=== PATIENT | female | born 1980 | race Caucasian/White ===

== ENCOUNTER 2017-04-28 12:43 | Observation (INO) | payer BC, OTHER ==
[~2017-04-28] VITALS: Ht 154.9 cm; Wt 103.8 kg
[~2017-04-28 12:43] MED LIST: KETOROLAC TROMETHAMINE 60 MG/2 ML (IM) VIAL IM ONE; LACTATED RINGER'S 1000 ML INJ 1,000 ML IV ONE; NEOSTIGMINE 3 MG/3 ML SYR IV ONE; ONDANSETRON HCL 4 MG/2 ML VIAL IV PUSH ONE; PROPOFOL 200 MG/20 ML AMP IV ONE; Z.0.NO CURRENT MEDS
[2017-04-28 12:44] VITALS: BP 144/82; PULSE 79; RESP 15; TEMP 98; O2SAT 99
--- NOTE | 2017-04-28 14:29 | PD ---
HPI Chief Complaint: GI Complaint Time Seen by Provider: 14:18 Travel History International Travel<30 days: No Contact w/Intl Traveler<30days: No Traveled to known affect area: No History of Present Illness HPI 36yo F with no PMH presents to the ED with c/o epigastric abdominal pain. States it started yesterday and went away and then came back at 2am this morning. Pain is epigastric and radiates to the right abdomen and back. + Nausea. Denies any fever, chest pain, sob, vomiting, dysuria, hematuria, vaginal discharge. States she is on her menstrual period at this time. PSH include . Never had endoscopy. Denies history of gallstones. PFSH Past Medical History Cardiovascular Problems: Yes (HTN ) Social History Tobacco Use: No Allergies-Medications (Allergen,Severity, Reaction): Coded Allergies: No Known Allergies (Unverified , 04/28/17) Reported Meds & Prescriptions Reported Meds & Active Scripts Active Macrobid (Nitrofurantoin Monohydrate Macrocrystals) 100 Mg Capsule 100 Mg PO BID 7 Days Review of Systems Except as stated in HPI: all other systems reviewed are Neg Physical Exam Narrative GENERAL: 36yo F in mild distress. SKIN: Focused skin assessment warm/dry. HEAD: Atraumatic. Normocephalic. EYES: Pupils equal and round. No scleral icterus. No injection or drainage. CARDIOVASCULAR: Regular rate and rhythm. No murmur appreciated. RESPIRATORY: No accessory muscle use. Clear to auscultation. Breath sounds equal bilaterally. GASTROINTESTINAL: Abdomen soft, +TTP epigastric region and RUQ. No rebound tenderness or guarding. BACK: No midline ttp. No CVA tenderness. MUSCULOSKELETAL: No obvious deformities. No clubbing. No cyanosis. No edema. NEUROLOGICAL: Awake and alert. No obvious cranial nerve deficits. Motor grossly within normal limits. Normal speech. PSYCHIATRIC: Appropriate mood and affect; insight and judgment normal. Data Data Last Documented VS Vital Signs Date Time Temp Pulse Resp B/P Pulse Ox O2 Delivery O2 Flow Rate FiO2 04/28/17 18:35 16 04/28/17 17:35 78 125/82 97 Room Air 04/28/17 12:44 98.0 Orders Complete Blood Count With Diff (04/28/17 14:24) Urinalysis - C+S If Indicated (04/28/17 14:24) Iv Access Insert/Monitor (04/28/17 14:24) Ecg Monitoring (04/28/17 14:24) Oximetry (04/28/17 14:24) Morphine Inj (Morphine Inj) (04/28/17 14:30) Ondansetron Inj (Zofran Inj) (04/28/17 14:30) Sodium Chloride 0.9% Flush (Ns Flush) (04/28/17 14:30) Ed Urine Pregnancytest Poc (04/28/17 14:24) Hepatic Functional Panel (04/28/17 14:25) Pantoprazole Inj (Protonix Inj) (04/28/17 14:30) Basic Metabolic Panel (Bmp) (04/28/17 14:32) Lipase (04/28/17 14:32) Urine Culture (04/28/17 14:32) Ct Abd/Pel W Iv Contrast(Rout) (04/28/17 ) Piperacil-Tazo 4.5 Gm Premix (Zosyn 4.5 (04/28/17 15:45) NPO (04/28/17 15:36) Sodium Chlor 0.9% 1000 Ml Inj (Ns 1000 M (04/28/17 15:45) Iohexol 350 Inj (Omnipaque 350 Inj) (04/28/17 16:01) Morphine Inj (Morphine Inj) (04/28/17 17:30) Us Abdomen Gallbladder (04/28/17 ) Mri Mrcp W/O Contrast (04/28/17 ) Labs Laboratory Tests Test 04/28/17 14:32 White Blood Count 8.4 TH/MM3 Red Blood Count 4.47 MIL/MM3 Hemoglobin 14.5 GM/DL Hematocrit 40.9 % Mean Corpuscular Volume 91.4 FL Mean Corpuscular Hemoglobin 32.3 PG Mean Corpuscular Hemoglobin 35.4 % Concent Red Cell Distribution Width 12.2 % Platelet Count 304 TH/MM3 Mean Platelet Volume 7.9 FL Neutrophils (%) (Auto) 80.0 % Lymphocytes (%) (Auto) 12.7 % Monocytes (%) (Auto) 6.5 % Eosinophils (%) (Auto) 0.3 % Basophils (%) (Auto) 0.5 % Neutrophils # (Auto) 6.7 TH/MM3 Lymphocytes # (Auto) 1.1 TH/MM3 Monocytes # (Auto) 0.5 TH/MM3 Eosinophils # (Auto) 0.0 TH/MM3 Basophils # (Auto) 0.0 TH/MM3 CBC Comment DIFF FINAL Differential Comment Urine Color DARK-YELLOW Urine Turbidity HAZY Urine pH 6.5 Urine Specific [place] 1.025 Urine Protein 30 mg/dL Urine Glucose (UA) NEG mg/dL Urine Ketones NEG mg/dL Urine Occult Blood LARGE Urine Nitrite NEG Urine Bilirubin MOD Urine Urobilinogen 4.0 MG/DL Urine Leukocyte Esterase MOD Urine RBC 8 /hpf Urine WBC 16 /hpf Urine Squamous Epithelial 13 /hpf Cells Urine Mucus FEW /lpf Microscopic Urinalysis Comment CULTURE INDICATED Sodium Level 141 MEQ/L Potassium Level 3.8 MEQ/L Chloride Level 107 MEQ/L Carbon Dioxide Level 25.2 MEQ/L Anion Gap 9 MEQ/L Blood Urea Nitrogen 11 MG/DL Creatinine 0.78 MG/DL Estimat Glomerular Filtration 83 ML/MIN Rate Random Glucose 105 MG/DL Calcium Level 8.6 MG/DL Total Bilirubin 1.9 MG/DL Direct Bilirubin 1.0 MG/DL Indirect Bilirubin 0.9 MG/DL Aspartate Amino Transf 506 U/L (AST/SGOT) Alanine Aminotransferase 258 U/L (ALT/SGPT) Alkaline Phosphatase 142 U/L Total Protein 7.5 GM/DL Albumin 3.3 GM/DL Lipase 294 U/L [facility] Medical Decision Making Medical Screen Exam Complete: Yes Emergency Medical Condition: Yes Differential Diagnosis Biliary colic vs. acute cholecystitis vs. pancreatitis vs. choledocholithiasis vs. GERD vs. PUD vs. gastritis Narrative Course 36yo F with epigastric and RUQ pain that was intermittent since yesterday. States it was severe today and woke her up at 2am. Labs reviewed, no leukocytosis. LFTs and bilirubin are elevated. Normal lipase. Will cover with zosyn IV. UA showed moderate leukocytosis. Culture indicated. Pt reevaluated at bedside after morphine and pain had improved but coming back, will give another dose. CTa/p showed no dilation of biliary tree. No calcified gallstones. Pancreas normal. Soft tissue mass in anterior pelvis. Pt already knows about this and has been worked up for it and is following up with PMD regarding this. Discussed with Dr. Hubbard from GI and he recommends an MRCP in the ED and disposition is dependant on that. MRCP ordered. Sign out to next team Dr. Walter to follow up MRCP. Diagnosis Primary Impression: UTI (urinary tract infection) Qualified Code: N39.0 - Urinary tract infection with hematuria, site unspecified Patient Instructions: General Instructions Departure Forms: Tests/Procedures Additional Instructions: Please follow up with your PMD regarding your pelvic mass. Med/Other Pt SpecificInfo: Prescription(s) given Scripts Nitrofurantoin Monohydrate Macrocrystals (Macrobid)100 Mg [id number] Mg PO BID 7 Days Ref 0 Prov:Rupali Vazquez DO 04/28/17 Rupali Vazquez DO Apr 28, 2017 14:29 Prov:Rupali Vazquez DO 04/28/17 Rupali Vazquez DO Apr 28, 2017 14:29
[2017-04-28 14:30] VITALS: O2SAT 98
[2017-04-28] MEDS ORDERED: SODIUM CHLORIDE 0.9% FLUSH 10 ML FLUSH IV FLUSH PRN ×3 (14:30→23:45)
[2017-04-28] MEDS ORDERED: PANTOPRAZOLE SODIUM 40 MG VIAL IV PUSH ONE (14:30)
[2017-04-28] MEDS ORDERED: MORPHINE SULFATE 4 MG/ML INJ IV PUSH ONE ×2 (14:30→17:30)
[2017-04-28] MEDS ORDERED: ONDANSETRON HCL 4 MG/2 ML VIAL IVP ONE (14:30)
[2017-04-28 14:48] LABS: AUTOMATED NEUTROPHIL # 6.7 TH/MM3 (1.8-7.7); BASOPHIL % 0.5 % (0.0-2.0); EOSINOPHIL % 0.3 % (0.0-4.0); HEMATOCRIT 40.9 % (35.0-46.0); HEMO FLAGS DIFF FINAL; LYMPH % 12.7 % (9.0-44.0); LYMPHOCYTE # 1.1 TH/MM3 (1.0-4.8); MEAN CELL VOLUME 91.4 FL (80.0-100.0); MEAN CORPUSCULAR HEMOGLOBIN 32.3 PG (27.0-34.0); MEAN CORPUSCULAR HGB CONC 35.4 % (32.0-36.0); MONO % 6.5 % (0.0-8.0); PLATELET COUNT 304 TH/MM3 (150-450); RED BLOOD COUNT 4.47 MIL/MM3 (4.00-5.30); RED CELL DISTRIBUTION WIDTH 12.2 % (11.6-17.2); WHITE BLOOD COUNT 8.4 TH/MM3 (4.0-11.0)
[2017-04-28 14:53] VITALS: BP 126/67; PULSE 73; RESP 17; O2SAT 97
[2017-04-28 14:57] LABS: BLOOD, URINE LARGE (NEG); COMMENT (UR) CULTURE INDICATED; CULTURE IF INDICATED CULTURE INDICATED; GLUCOSE,URINE NEG (NEG); KETONE, URINE NEG (NEG); MUCUS URINE FEW /lpf (OCC); NITRITE,URINE NEG (NEG); PH, URINE 6.5 (5.0-8.5); SQUAMOUS EPITHELIAL CELL URINE 13 /hpf (0-5); URINE COLOR DARK-YELLOW (YELLW/STRAW)
[2017-04-28 15:06] LABS: BICARBONATE 25.2 MEQ/L (21.0-32.0); POTASSIUM 3.8 MEQ/L (3.5-5.1)
[2017-04-28 15:08] LABS: INDIRECT BILIRUBIN 0.9 MG/DL (0.0-0.8); TOTAL BILIRUBIN ADULT 1.9 MG/DL (0.2-1.0)
[2017-04-28] MEDS ORDERED: SODIUM CHLOR 0.9% 1000 ML INJ 1,000 ML IV ONE (15:45)
[2017-04-28] MEDS ORDERED: PIPERACIL-TAZO 4.5 GM PREMIX 100 ML IV ONE (15:45)
[2017-04-28] MEDS ORDERED: IOHEXOL 350 MG/ML 10 ML VIAL (for RAD DIAG) IV ONE (16:01)
--- NOTE | 2017-04-28 16:22 | RADRPT ---
EXAM DATE/TIME: 04/28/2017 15:53 [facility] COMPARISON: No previous studies available for comparison. INDICATIONS : Epigastric pain starting today,nausea. IV CONTRAST: 86 cc Omnipaque 350 (iohexol) IV ORAL CONTRAST: No oral contrast ingested. RADIATION DOSE: 16.39 CTDIvol (mGy) MEDICAL HISTORY : Hypertension. SURGICAL HISTORY : section. ENCOUNTER: Initial ACUITY: 1 day PAIN SCALE: 8/10 LOCATION: Abdomen TECHNIQUE: Volumetric scanning of the abdomen and pelvis was performed. Using automated exposure control and ad justment of the mA and/or kV according to patient size, radiation dose was kept as low as reasonably achievable to obtain optimal diagnostic quality images. DICOM format image data is available electro nically for review and comparison. FINDINGS: LOWER LUNGS: Fibrotic scarring is noted within the right middle lobe and lingula of the left upper lobe. LIVER: Homogeneous density without lesion. There is no dilation of the biliary tree. No calcified gallston es. SPLEEN: Normal size without lesion. PANCREAS: Within normal limits. KIDNEYS: Normal in size and shape. There is no mass, stone or hydronephrosis. ADRENAL GLANDS: Within normal limits. VASCULAR: There is no aortic aneurysm. BOWEL/MESENTERY: The stomach, small bowel, and colon demonstrate no acute abnormality. There is no free intraperitone al air or fluid. ABDOMINAL WALL: There is a spiculated soft tissue mass within the subcutaneous fat of the anterior pelvis which is in separable from the left rectus musculature and measures 5.8 x 7.0 x 4.8 cm. There is indeterminate an d soft tissue neoplasm remains in the differential. Percutaneous biopsy of this lesion could be perfo rmed if requested. RETROPERITONEUM: There is no lymphadenopathy. BLADDER: No wall thickening or mass. REPRODUCTIVE: There is a left fundal mass within the uterus measuring 3 cm consistent with probable fibroid. INGUINAL: There is no lymphadenopathy or hernia. MUSCULOSKELETAL: Within normal limits for patient age. CONCLUSION: 1. Spiculated soft tissue mass within the subcutaneous fat of the anterior pelvis which is inseparabl e from the left rectus musculature and measures 5.8 x 7.0 x 4.8 cm. There is indeterminate and soft t issue neoplasm remains in the differential. Percutaneous biopsy of this lesion could be performed if requested. 2. 3 cm left uterine fundal fibroid. Cornelio Vazquez MD on April 28, 2017 at 16:13 Board Certified Radiologist. This report was verified electronically.
[2017-04-28] MEDS ORDERED: MACR100C2 PO (17:26)
[2017-04-28 17:35] VITALS: BP 125/82; PULSE 78; RESP 17; O2SAT 97
--- NOTE | 2017-04-28 19:11 | RADRPT ---
EXAM DATE/TIME: 04/28/2017 18:43 [facility] COMPARISON: CT ABDOMEN & PELVIS W CONTRAST, April 28, 2017, 15:53. INDICATIONS : Right upper quadrant pain. MEDICAL HISTORY : Hypertension. SURGICAL HISTORY : section. ENCOUNTER: Initial ACUITY: 2 days PAIN SCORE: 7/10 LOCATION: Right upper quadrant MEASUREMENTS: LIVER: 16.9 cm length COMMON DUCT: 4 mm RIGHT KIDNEY: 10.4 x 6.3 x 5.1 cm FINDINGS: LIVER: Normal echotexture without focal lesion or ductal dilatation. Hepatopedal flow. COMMON DUCT: No intraluminal mass or stone visualized. GALLBLADDER: Contains multiple stones, demonstrates mild wall thickening without pericholecystic fluid. PANCREAS: The visualized portions are within normal limits. RIGHT KIDNEY: No evidence of hydronephrosis, stone, or mass. CONCLUSION: 1. Cholelithiasis with gallbladder wall thickening. Ehsan Abdi MD on April 28, 2017 at 19:08 Board Certified Radiologist. This report was verified electronically.
[2017-04-28 20:00] VITALS: BP 150/82; PULSE 79; RESP 16; O2SAT 96
--- NOTE | 2017-04-28 20:03 | RADRPT ---
EXAM DATE/TIME: 04/28/2017 19:13 [facility] COMPARISON: US ABDOMEN - GALLBLADDER, April 28, 2017, 18:43. CT ABDOMEN & PELVIS W CONTRAST, April 28, 2017, 15:53 . INDICATIONS : Pain. Epigastric pain and nausea. MEDICAL HISTORY : Hypertension. SURGICAL HISTORY : section. ENCOUNTER: Subsequent ACUITY: 2 day PAIN SCORE: 8/10 LOCATION: Abdomen. TECHNIQUE: Multiplanar, multisequence magnetic resonance imaging of the abdomen was performed. High-resolution 3D dataset was utilized to reconstruct maximum-intensity projection (MIP) images. FINDINGS: INTRAHEPATIC BILE DUCTS: Within normal limits. No significant anatomical variant is present. EXTRAHEPATIC BILE DUCTS: The common bile duct measures 2-3 mm. No stone or filling defect is identified. GALLBLADDER: No stones, wall thickening, or pericholecystic fluid. LIVER: Normal size and signal intensity. No concerning liver lesion is identified on this non-contrast exam. PANCREAS: The main pancreatic duct is normal in size. There is no significant anatomical variant. Signal inte nsity is within normal limits. No mass is visualized on this non-contrast exam. OTHER: The remaining visualized structures demonstrate no acute abnormality on this non-contrast exam. CONCLUSION: 1. Cholelithiasis and gallbladder wall thickening. 2. Normal common bile duct. No edge or extrahepatic biliary ductal dilatation. Ehsan Abdi MD on April 28, 2017 at 19:59 Board Certified Radiologist. This report was verified electronically.
--- NOTE | 2017-04-28 20:22 | PD ---
Data Data Last Documented VS Vital Signs Date Time Temp Pulse Resp B/P Pulse Ox O2 Delivery O2 Flow Rate FiO2 04/28/17 20:00 79 16 150/82 96 Room Air 04/28/17 12:44 98.0 Orders Complete Blood Count With Diff (04/28/17 14:24) Urinalysis - C+S If Indicated (04/28/17 14:24) Iv Access Insert/Monitor (04/28/17 14:24) Ecg Monitoring (04/28/17 14:24) Oximetry (04/28/17 14:24) Morphine Inj (Morphine Inj) (04/28/17 14:30) Ondansetron Inj (Zofran Inj) (04/28/17 14:30) Sodium Chloride 0.9% Flush (Ns Flush) (04/28/17 14:30) Ed Urine Pregnancytest Poc (04/28/17 14:24) Hepatic Functional Panel (04/28/17 14:25) Pantoprazole Inj (Protonix Inj) (04/28/17 14:30) Basic Metabolic Panel (Bmp) (04/28/17 14:32) Lipase (04/28/17 14:32) Urine Culture (04/28/17 14:32) Ct Abd/Pel W Iv Contrast(Rout) (04/28/17 ) Piperacil-Tazo 4.5 Gm Premix (Zosyn 4.5 (04/28/17 15:45) NPO (04/28/17 15:36) Sodium Chlor 0.9% 1000 Ml Inj (Ns 1000 M (04/28/17 15:45) Iohexol 350 Inj (Omnipaque 350 Inj) (04/28/17 16:01) Morphine Inj (Morphine Inj) (04/28/17 17:30) Us Abdomen Gallbladder (04/28/17 ) Mri Mrcp W/O Contrast (04/28/17 ) Admit Order (Ed Use Only) (04/28/17 ) Consult Gastroenterology (04/28/17 ) Consult General Surgery (04/28/17 ) Labs Laboratory Tests Test 04/28/17 14:32 White Blood Count 8.4 TH/MM3 Red Blood Count 4.47 MIL/MM3 Hemoglobin 14.5 GM/DL Hematocrit 40.9 % Mean Corpuscular Volume 91.4 FL Mean Corpuscular Hemoglobin 32.3 PG Mean Corpuscular Hemoglobin 35.4 % Concent Red Cell Distribution Width 12.2 % Platelet Count 304 TH/MM3 Mean Platelet Volume 7.9 FL Neutrophils (%) (Auto) 80.0 % Lymphocytes (%) (Auto) 12.7 % Monocytes (%) (Auto) 6.5 % Eosinophils (%) (Auto) 0.3 % Basophils (%) (Auto) 0.5 % Neutrophils # (Auto) 6.7 TH/MM3 Lymphocytes # (Auto) 1.1 TH/MM3 Monocytes # (Auto) 0.5 TH/MM3 Eosinophils # (Auto) 0.0 TH/MM3 Basophils # (Auto) 0.0 TH/MM3 CBC Comment DIFF FINAL Differential Comment Urine Color DARK-YELLOW Urine Turbidity HAZY Urine pH 6.5 Urine Specific [place] 1.025 Urine Protein 30 mg/dL Urine Glucose (UA) NEG mg/dL Urine Ketones NEG mg/dL Urine Occult Blood LARGE Urine Nitrite NEG Urine Bilirubin MOD Urine Urobilinogen 4.0 MG/DL Urine Leukocyte Esterase MOD Urine RBC 8 /hpf Urine WBC 16 /hpf Urine Squamous Epithelial 13 /hpf Cells Urine Mucus FEW /lpf Microscopic Urinalysis Comment CULTURE INDICATED Sodium Level 141 MEQ/L Potassium Level 3.8 MEQ/L Chloride Level 107 MEQ/L Carbon Dioxide Level 25.2 MEQ/L Anion Gap 9 MEQ/L Blood Urea Nitrogen 11 MG/DL Creatinine 0.78 MG/DL Estimat Glomerular Filtration 83 ML/MIN Rate Random Glucose 105 MG/DL Calcium Level 8.6 MG/DL Total Bilirubin 1.9 MG/DL Direct Bilirubin 1.0 MG/DL Indirect Bilirubin 0.9 MG/DL Aspartate Amino Transf 506 U/L (AST/SGOT) Alanine Aminotransferase 258 U/L (ALT/SGPT) Alkaline Phosphatase 142 U/L Total Protein 7.5 GM/DL Albumin 3.3 GM/DL Lipase 294 U/L [facility] Supervised Visit with HENRRY: Yes Narrative Course Patient care assumed from Dr. Rupali Vazquez at 1999. This is a 36-year-old female presents with postprandial right upper quadrant and epigastric pain radiating to her back. Patient states hurts or when she takes deep breath. CAT scan did show a contracted gallbladder. Patient on my exam does have a weakly positive [place] sign. She is much more comfortable after morphine shot administered by Dr. Garvey. LFTs alkaline phosphatase and bilirubin are all mildly elevated. Patient was discussed with Dr. Hubbard by Dr. Garvey who recommended an MRCP. On my assessment patient fairly classic for gallbladder disease and I have ordered an ultrasound. Ultrasound and MRCP results reviewed: Last 24 hours Impressions Gall Bladder Ultrasound 04/28/17 Signed Impressions: Service Date/Time: Friday, April 28, 2017 18:43 - CONCLUSION: 1. Cholelithiasis with gallbladder wall thickening. Ehsan Abdi MD Abdomen/Pelvis CT 04/28/17 Signed Impressions: Service Date/Time: Friday, April 28, 2017 15:53 - CONCLUSION: 1. Spiculated soft tissue mass within the subcutaneous fat of the anterior pelvis which is inseparable from the left rectus musculature and measures 5.8 x 7.0 x 4.8 cm. There is indeterminate and soft tissue neoplasm remains in the differential. Percutaneous biopsy of this lesion could be performed if requested. 2. 3 cm left uterine fundal fibroid. Cornelio Vazquez MD The ultrasound and CT results as well as labs were discussed with Dr. Childers who requested the patient be admitted to medicine for workup of possible choledocholithiasis. He requests pain medicine be given and antibiotics. Zosyn was administered by Dr. Vazquez. Discussed with Dr. Dos Santos who will admit. It is 2129, and Dr. Childers has arrived to examine the patient and he is convinced the patient has acute cholecystitis. I surely do not disagree. He would like the patient to be on his surgical service at this time and he is planning to take to the operating room tonight. This change in plan was discussed with Dr. Gomez, she has not had any direct patient contact the did place some holding orders for this patient with Dr. Childers will be the primary service at this time no medicine consult is been placed. Diagnosis Primary Impression: Cholecystitis Additional Impressions: Transaminitis UTI (urinary tract infection) Qualified Code: N39.0 - Urinary tract infection with hematuria, site unspecified Admitting Information Admitting Physician Requests: Admit Patient Instructions: General Instructions Departure Forms: Tests/Procedures Additional Instruction: Please follow up with your PMD regarding your pelvic mass. Scripts Nitrofurantoin Monohydrate Macrocrystals (Macrobid)100 Mg [id number] Mg PO BID 7 Days Ref 0 Prov:Rupali Vazquez DO 04/28/17 Condition: Stable Cornelio Walter MD Apr 28, 2017 20:22
[2017-04-28] MEDS ORDERED: fentaNYL CITRATE 250 MCG/5 ML AMP ONE (21:28)
[2017-04-28] MEDS ORDERED: BUPIVACAINE/EPINEPHRINE 0.25% 50 ML VIAL ONE (21:34)
[2017-04-28] MEDS ORDERED: SODIUM CHLOR 0.9% 1000 ML INJ 1,000 ML IV SCH (21:38)
[2017-04-28 21:45] VITALS: BP 149/81; PULSE 75; RESP 16; TEMP 98.3; O2SAT 97
[2017-04-28] MEDS ORDERED: NALOXONE HCL 0.4 MG/ML AMP IV PRN ×2 (21:45→23:45)
[2017-04-28] MEDS ORDERED: HYDROmorphone HCL PF 1 MG/ML VIAL IV PUSH PRN (21:45)
[2017-04-28] MEDS ORDERED: ACETAMINOPHEN 1000 MG/100 ML VIAL IV ONE (21:57)
--- NOTE | 2017-04-28 21:59 | HHI.HP ---
HPI Service General surgery Primary Care Physician Yarelis Engel MD Admission Diagnosis Cholecystitis Chief Complaint: Abdominal pain History of Present Illness The patient is an obese 36-year-old female who developed epigastric and right upper quadrant pain radiating to the back at 2 AM this morning which woke her up from sleep. The pain improved within began again around 9 AM after she had some breakfast. She had associated nausea but no fever or chills. The patient mentions that she has a painful mass in the lower abdomen which causes her constant pain but does worsen with menses. This began about 8 years ago. She has had some evaluation as an outpatient but no biopsy. In addition, the patient's mother was diagnosed with colon cancer at age of 41. The patient is never had a colonoscopy. Past surgical history includes 9 years ago. Review of Systems Constitutional: DENIES: Fever, Chills Eyes: DENIES: Eye inflammation, Eye pain Respiratory: DENIES: Cough, Shortness of breath Cardiovascular: DENIES: Chest pain, Syncope Gastrointestinal: COMPLAINS OF: Abdominal pain, Nausea Musculoskeletal: DENIES: Muscle aches, Stiffness Integumentary: DENIES: Pruritus, Rash Neurologic: DENIES: Paresthesias, Seizures Past Family Social History Past Medical History Reflux Past Surgical History Reported Medications Reported Meds & Active Scripts Active Macrobid (Nitrofurantoin Monohydrate Macrocrystals) 100 Mg Capsule 100 Mg PO BID 7 Days Allergies: Coded Allergies: No Known Allergies (Unverified , 04/28/17) Active Ordered Medications Current Medications Medications (Trade) Dose Ordered Sig/Miky Route Start Time Stop Time Status Last Admin (NS 1000 ml Inj) 1,000 ml @ 100 mls/hr Q10H IV 04/28/17 21:38 (NS Flush) 2 ml UNSCH PRN IV FLUSH 04/28/17 21:45 (NS Flush) 2 ml BID IV FLUSH 04/29/17 09:00 (Narcan Inj) 0.4 mg UNSCH PRN IV 04/28/17 21:45 (Dilaudid Pf Inj) 0.2 mg Q4H PRN IV PUSH 04/28/17 21:45 Family History Her mother was diagnosed with colon cancer at age 41. Social History No tobacco use. Physical Exam Vital Signs Vital Signs Date Time Temp Pulse Resp B/P Pulse Ox O2 Delivery O2 Flow Rate FiO2 04/28/17 21:45 98.3 75 16 149/81 97 Room Air 04/28/17 20:00 79 16 150/82 96 Room Air 04/28/17 18:35 16 04/28/17 17:35 78 17 125/82 97 Room Air 04/28/17 16:41 16 04/28/17 14:53 73 17 126/67 97 Room Air 04/28/17 14:30 98 Room Air 04/28/17 12:44 98.0 79 15 144/82 99 Physical Exam GENERAL: Awake and alert. No acute distress. Cooperative. Obese. HEAD: Normocephalic. Atraumatic. EYES: Pupils equal round and reactive to light bilaterally. No scleral icterus. CHEST: Lungs clear to auscultation bilaterally with no wheezing or rhonchi. No respiratory distress. CARDIOVASCULAR: Regular rate and rhythm. ABDOMEN: Soft. Moderate tenderness in the epigastrium and the right upper quadrant. Well-healed Pfannenstiel incision. Firm mass may be 5 cm in diameter deep and just superior to the incision just to the left of midline. It is mildly tender. EXTREMITIES: No cyanosis or edema. SKIN: Warm, dry, nonjaundiced. Laboratory Laboratory Tests Test 04/28/17 14:32 White Blood Count 8.4 Red Blood Count 4.47 Hemoglobin 14.5 Hematocrit 40.9 Mean Corpuscular Volume 91.4 Mean Corpuscular Hemoglobin 32.3 Mean Corpuscular Hemoglobin 35.4 Concent Red Cell Distribution Width 12.2 Platelet Count 304 Mean Platelet Volume 7.9 Neutrophils (%) (Auto) 80.0 Lymphocytes (%) (Auto) 12.7 Monocytes (%) (Auto) 6.5 Eosinophils (%) (Auto) 0.3 Basophils (%) (Auto) 0.5 Neutrophils # (Auto) 6.7 Lymphocytes # (Auto) 1.1 Monocytes # (Auto) 0.5 Eosinophils # (Auto) 0.0 Basophils # (Auto) 0.0 CBC Comment DIFF FINAL Differential Comment Urine Color DARK-YELLOW Urine Turbidity HAZY Urine pH 6.5 Urine Specific [place] 1.025 Urine Protein 30 Urine Glucose (UA) NEG Urine Ketones NEG Urine Occult Blood LARGE Urine Nitrite NEG Urine Bilirubin MOD Urine Urobilinogen 4.0 Urine Leukocyte Esterase MOD Urine RBC 8 Urine WBC 16 Urine Squamous Epithelial 13 Cells Urine Mucus FEW Microscopic Urinalysis Comment CULTURE INDICATED Sodium Level 141 Potassium Level 3.8 Chloride Level 107 Carbon Dioxide Level 25.2 Anion Gap 9 Blood Urea Nitrogen 11 Creatinine 0.78 Estimat Glomerular Filtration 83 Rate Random Glucose 105 Calcium Level 8.6 Total Bilirubin 1.9 Direct Bilirubin 1.0 Indirect Bilirubin 0.9 Aspartate Amino Transf 506 (AST/SGOT) Alanine Aminotransferase 258 (ALT/SGPT) Alkaline Phosphatase 142 Total Protein 7.5 Albumin 3.3 Lipase 294 Date/Time Procedure Status Source Growth 04/28/17 14:32 Urine Culture Received Urine Random Urine Pending Result Diagram: 04/28/17 1432 04/28/17 1432 Imaging Last Impressions Gall Bladder Ultrasound 04/28/17 0000 Signed Impressions: Service Date/Time: Friday, April 28, 2017 18:43 - CONCLUSION: 1. Cholelithiasis with gallbladder wall thickening. Ehsan Abdi MD Cholangiopancreatography MRI 04/28/17 0000 Signed Impressions: Service Date/Time: Friday, April 28, 2017 19:13 - CONCLUSION: 1. Cholelithiasis and gallbladder wall thickening. 2. Normal common bile duct. No edge or extrahepatic biliary ductal dilatation. Ehsan Abdi MD Abdomen/Pelvis CT 04/28/17 0000 Signed Impressions: Service Date/Time: Friday, April 28, 2017 15:53 - CONCLUSION: 1. Spiculated soft tissue mass within the subcutaneous fat of the anterior pelvis which is inseparable from the left rectus musculature and measures 5.8 x 7.0 x 4.8 cm. There is indeterminate and soft tissue neoplasm remains in the differential. Percutaneous biopsy of this lesion could be performed if requested. 2. 3 cm left uterine fundal fibroid. Cornelio Vazquez MD Assessment and Plan Assessment and Plan 36-year-old female with an evaluation consistent with acute cholecystitis. Due to the elevation of liver enzymes including bilirubin and alkaline phosphatase, the case was discussed with Dr. Nunez and of GI and an MRCP was ordered by the emergency room physician. This revealed a normal common bile duct with no filling defects. I recommend to proceed to the operating room for laparoscopic , possible open cholecystectomy. I discussed the case in detail with the patient including the risk of common duct injury or retained stones. She understands and desires to proceed. Tiago Childers MD Apr 28, 2017 21:59
[2017-04-28] MEDS ORDERED: MIDAZOLAM HCL 2 MG/2 ML VIAL ONE (22:07)
[2017-04-28] MEDS ORDERED: PIPERACIL-TAZO 3.375 GM PREMIX 50 ML IV ONE (22:30)
[2017-04-28] MEDS ORDERED: SUGAMMADEX SODIUM 200 MG/2 ML VIAL IV PUSH ONE ×2 (23:37)
[2017-04-28] MEDS: LACTATED RINGER'S 1000 ML INJ 1,000 ML IV SCH (23:41)
[2017-04-28] MEDS ORDERED: Post-op Orders (for Pharmacy) MISC XX ONE (23:45)
[2017-04-28] MEDS ORDERED: DO NOT ADM ANY ANTICOAGULANT DRUGS PRN (23:45)
[2017-04-28] MEDS ORDERED: diphenhydrAMINE HCL 25 MG CAP PO PRN (23:45)
--- NOTE | 2017-04-28 23:49 | PD.OP ---
cc: Tiago Childers MD Operative Report Date of Surgery: Apr 28, 2017 Preoperative Diagnosis: (1) Acute cholecystitis Postoperative Diagnosis: (1) Acute cholecystitis Procedure: Laparoscopic cholecystectomy Anesthesia: GETA Surgeon: Tiago Childers Rocket Engine Mechanic(s): Eduardo AGRAWALII Operation and Findings: Complications: None apparent EBL:50cc Operative findings: The gallbladder was thick-walled and had multiple gallstones and was inflamed. However it was not distended it was somewhat contracted. The cystic duct was short. Procedure in detail: The patient was taken to the operating room and placed in the supine position. General endotracheal anesthesia was induced. The abdomen was prepped and draped in usual sterile fashion and a surgical timeout was performed to verify correct patient procedure and site. Appropriate perioperative antibiotics were administered. Local anesthetic was injected in the skin and subcutaneous tissue superior to the umbilicus and a 5 mm incision performed. The abdomen was entered using the Optiview 5 mm trocar with direct laparoscopic visualization. The abdomen was then insufflated to 15 mmHg with CO2 gas which the patient tolerated well. Next a 12 mm port was placed in the epigastrium and two 5 mm ports in the right upper quadrant and right lateral abdomen. The patient was placed in reverse Trendelenburg position and turned slightly to the left. Attention was turned to the right upper quadrant and the dome of the gallbladder was grasped and retracted cephalad. The gallbladder was somewhat contracted but thick-walled and inflamed with gallstones present. The infundibulum was retracted laterally to expose Calot's triangle. Blunt dissection and judicious use of electrocautery was used to expose the cystic duct and the cystic artery directly entering the gallbladder. The common duct was pulled up towards the infundibulum and the cystic duct was short. Two clips were placed proximally on each of these structures and one distally and they were transected. The gallbladder was then removed from the liver bed using electrocautery. There was some oozing from the liver bed which was cauterized. In addition, Surgicel was placed. Hemostasis was achieved. The gallbladder was then removed from the abdomen using an Endo Catch bag. The clips were in place on the cystic duct and cystic artery stumps with no bleeding or bile leakage. At this point, the abdomen was allowed to desufflate and trochars were removed. The fascia at the 12 mm port site was closed with 0 Vicryl suture using a laparoscopic fascial closure device. Skin was closed with subcuticular 4-0 Monocryl as well as Dermabond. The patient tolerated the procedure well and was extubated and taken to PACU in stable condition. All sponge and instrument counts were correct. Tiago Childers MD Apr 28, 2017 23:49
[2017-04-28] MEDS ORDERED: *MEPERIDINE 25 MG INJ VIAL PERIprocedural Use ONLY ONE (23:53)
[2017-04-29] VITALS (8 sets, daily range): BP systolic 111–137; BP diastolic 65–82; PULSE 73–89; RESP 17–18; TEMP 97.4–97.8; O2SAT 94–98
[2017-04-29] MEDS ORDERED: *morphine SULFATE 8 MG/ML PERIprocedure ONLY ONE (00:09)
[2017-04-29] MEDS: oxyCODONE/ACETAMINOPHEN 5 MG/325 MG TAB PO PRN (01:37)
[2017-04-29] MEDS: MORPHINE SULFATE 4 MG/ML INJ IV PRN ×2 (06:04→23:00)
[2017-04-29 06:57] LABS: AUTOMATED NEUTROPHIL # 6.6 TH/MM3 (1.8-7.7); BASOPHIL % 0.6 % (0.0-2.0); EOSINOPHIL % 0.2 % (0.0-4.0); HEMATOCRIT 37.1 % (35.0-46.0); HEMO FLAGS DIFF FINAL; LYMPH % 13.8 % (9.0-44.0); LYMPHOCYTE # 1.1 TH/MM3 (1.0-4.8); MEAN CELL VOLUME 92.9 FL (80.0-100.0); MEAN CORPUSCULAR HEMOGLOBIN 31.6 PG (27.0-34.0); MEAN CORPUSCULAR HGB CONC 34.1 % (32.0-36.0); MONO % 4.2 % (0.0-8.0); NEUT % 81.2 % (16.0-70.0); PLATELET COUNT 255 TH/MM3 (150-450); RED BLOOD COUNT 3.99 MIL/MM3 (4.00-5.30); WHITE BLOOD COUNT 8.1 TH/MM3 (4.0-11.0)
[2017-04-29 07:20] LABS: ANION GAP 9 MEQ/L (5-15); AST (GOT) 900 U/L (15-37); BICARBONATE 23.4 MEQ/L (21.0-32.0); BLOOD UREA NITROGEN 10 MG/DL (7-18); CHLORIDE 107 MEQ/L (98-107); GLOMERULAR FILTRATION RATE 93 ML/MIN (>89); POTASSIUM 3.6 MEQ/L (3.5-5.1); SODIUM (NA) 139 MEQ/L (136-145)
[2017-04-29 07:23] LABS: ALKALINE PHOSPHATASE 177 U/L (45-117); ALT (GPT) 600 U/L (10-53); TOTAL BILIRUBIN ADULT 3.3 MG/DL (0.2-1.0)
[2017-04-29] MEDS ORDERED: SODIUM CHLORIDE 0.9% FLUSH 10 ML FLUSH IV FLUSH SCH (09:00)
[2017-04-29] MEDS: SODIUM CHLORIDE 0.9% FLUSH 10 ML FLUSH IV FLUSH SCH ×2 (09:00→20:02)
[2017-04-29] MEDS: oxyCODONE/ACETAMINOPHEN 10 MG/325 MG TAB PO PRN ×3 (09:15→20:01)
[2017-04-29] MEDS: FAMOTIDINE 20 MG TAB PO SCH ×2 (09:15→20:01)
[2017-04-29] MEDS: LACTATED RINGER'S 1000 ML INJ 1,000 ML IV SCH ×2 (09:16→19:41)
[2017-04-29] MEDS: ONDANSETRON HCL 4 MG/2 ML VIAL IV PRN ×2 (10:55→23:00)
--- NOTE | 2017-04-29 13:12 | HHI.PR ---
Subjective Subjective Notes She feels sore at the incisions and in RUQ. Preop pain is improved. Martin some diet. LFTs are increased this am. Objective Vitals/I&O Vital Signs Date Time Temp Pulse Resp B/P Pulse Ox O2 Delivery O2 Flow Rate FiO2 04/29/17 11:36 97.8 73 18 137/82 96 04/29/17 03:20 Room Air Labs Laboratory Tests Test 04/28/17 04/29/17 14:32 05:25 White Blood Count 8.4 8.1 Red Blood Count 4.47 3.99 Hemoglobin 14.5 12.6 Hematocrit 40.9 37.1 Mean Corpuscular Volume 91.4 92.9 Mean Corpuscular Hemoglobin 32.3 31.6 Mean Corpuscular Hemoglobin 35.4 34.1 Concent Red Cell Distribution Width 12.2 12.0 Platelet Count 304 255 Mean Platelet Volume 7.9 9.0 Neutrophils (%) (Auto) 80.0 81.2 Lymphocytes (%) (Auto) 12.7 13.8 Monocytes (%) (Auto) 6.5 4.2 Eosinophils (%) (Auto) 0.3 0.2 Basophils (%) (Auto) 0.5 0.6 Neutrophils # (Auto) 6.7 6.6 Lymphocytes # (Auto) 1.1 1.1 Monocytes # (Auto) 0.5 0.3 Eosinophils # (Auto) 0.0 0.0 Basophils # (Auto) 0.0 0.0 CBC Comment DIFF FINAL DIFF FINAL Differential Comment Urine Color DARK-YELLOW Urine Turbidity HAZY Urine pH 6.5 Urine Specific [place] 1.025 Urine Protein 30 Urine Glucose (UA) NEG Urine Ketones NEG Urine Occult Blood LARGE Urine Nitrite NEG Urine Bilirubin MOD Urine Urobilinogen 4.0 Urine Leukocyte Esterase MOD Urine RBC 8 Urine WBC 16 Urine Squamous Epithelial 13 Cells Urine Mucus FEW Microscopic Urinalysis Comment CULTURE INDICATED Sodium Level 141 139 Potassium Level 3.8 3.6 Chloride Level 107 107 Carbon Dioxide Level 25.2 23.4 Anion Gap 9 9 Blood Urea Nitrogen 11 10 Creatinine 0.78 0.71 Estimat Glomerular Filtration 83 93 Rate Random Glucose 105 87 Calcium Level 8.6 7.7 Total Bilirubin 1.9 3.3 Direct Bilirubin 1.0 Indirect Bilirubin 0.9 Aspartate Amino Transf 506 900 (AST/SGOT) Alanine Aminotransferase 258 600 (ALT/SGPT) Alkaline Phosphatase 142 177 Total Protein 7.5 6.4 Albumin 3.3 3.0 Lipase 294 Date/Time Procedure Status Source Growth 04/28/17 14:32 Urine Culture Received Urine Random Urine Pending Radiology Last Impressions Gall Bladder Ultrasound 04/28/17 0000 Signed Impressions: Service Date/Time: Friday, April 28, 2017 18:43 - CONCLUSION: 1. Cholelithiasis with gallbladder wall thickening. Ehsan Abdi MD Cholangiopancreatography MRI 04/28/17 0000 Signed Impressions: Service Date/Time: Friday, April 28, 2017 19:13 - CONCLUSION: 1. Cholelithiasis and gallbladder wall thickening. 2. Normal common bile duct. No edge or extrahepatic biliary ductal dilatation. Ehsan Abdi MD Abdomen/Pelvis CT 04/28/17 0000 Signed Impressions: Service Date/Time: Friday, April 28, 2017 15:53 - CONCLUSION: 1. Spiculated soft tissue mass within the subcutaneous fat of the anterior pelvis which is inseparable from the left rectus musculature and measures 5.8 x 7.0 x 4.8 cm. There is indeterminate and soft tissue neoplasm remains in the differential. Percutaneous biopsy of this lesion could be performed if requested. 2. 3 cm left uterine fundal fibroid. Cornelio Vazquez MD Narrative Exam NAD Abd: Plan B Acqusitions, inc c/d/i A/P Assessment and Plan 36 yo F POD 1 s/p lap kory. Now with elevated LFTs despite normal preop MRCP. Repeat labs in am. Cont diet today. Tiago Childers MD Apr 29, 2017 13:12
[2017-04-30 00:01] VITALS: BP 136/73; PULSE 84; RESP 18; TEMP 97.5; O2SAT 97
[2017-04-30] MEDS: oxyCODONE/ACETAMINOPHEN 5 MG/325 MG TAB PO PRN (02:32)
[2017-04-30 04:06] VITALS: BP 109/64; PULSE 79; RESP 18; TEMP 98.4; O2SAT 95
[2017-04-30] MEDS: LACTATED RINGER'S 1000 ML INJ 1,000 ML IV SCH (05:41)
[2017-04-30 08:00] VITALS: BP 99/62; PULSE 87; RESP 18; TEMP 97.6; O2SAT 92
[2017-04-30 08:22] LABS: AUTOMATED NEUTROPHIL # 6.7 TH/MM3 (1.8-7.7); BASOPHIL # 0.1 TH/MM3 (0-0.2); BASOPHIL % 0.6 % (0.0-2.0); EOSINOPHIL # 0.1 TH/MM3 (0-0.4); EOSINOPHIL % 1.3 % (0.0-4.0); HEMATOCRIT 36.2 % (35.0-46.0); HEMO FLAGS DIFF FINAL; LYMPH % 17.9 % (9.0-44.0); LYMPHOCYTE # 1.6 TH/MM3 (1.0-4.8); MEAN CELL VOLUME 92.6 FL (80.0-100.0); MEAN CORPUSCULAR HEMOGLOBIN 32.6 PG (27.0-34.0); MEAN CORPUSCULAR HGB CONC 35.2 % (32.0-36.0); MONO % 6.6 % (0.0-8.0); NEUT % 73.6 % (16.0-70.0); PLATELET COUNT 252 TH/MM3 (150-450); RED BLOOD COUNT 3.91 MIL/MM3 (4.00-5.30); RED CELL DISTRIBUTION WIDTH 12.1 % (11.6-17.2); WHITE BLOOD COUNT 9.1 TH/MM3 (4.0-11.0)
[2017-04-30] MEDS: SODIUM CHLORIDE 0.9% FLUSH 10 ML FLUSH IV FLUSH SCH (09:00)
[2017-04-30 09:06] LABS: ANION GAP 8 MEQ/L (5-15); BICARBONATE 23.8 MEQ/L (21.0-32.0); BLOOD UREA NITROGEN 10 MG/DL (7-18); CHLORIDE 106 MEQ/L (98-107); GLOMERULAR FILTRATION RATE 104 ML/MIN (>89); POTASSIUM 3.4 MEQ/L (3.5-5.1); SODIUM (NA) 138 MEQ/L (136-145)
[2017-04-30 09:07] LABS: ALT (GPT) 457 U/L (10-53); AST (GOT) 291 U/L (15-37)
[2017-04-30 09:09] LABS: ALKALINE PHOSPHATASE 211 U/L (45-117); TOTAL BILIRUBIN ADULT 1.4 MG/DL (0.2-1.0)
[2017-04-30] MEDS: FAMOTIDINE 20 MG TAB PO SCH (09:48)
[2017-04-30] MEDS: oxyCODONE/ACETAMINOPHEN 10 MG/325 MG TAB PO PRN ×2 (09:49→15:09)
[2017-04-30] MEDS ORDERED: OXYC1TAB36 PO (11:46)
--- NOTE | 2017-04-30 11:48 | HHI.DS ---
Discharge Summary Admission Date Apr 28, 2017 at 20:28 Discharge Date: Apr 30, 2017 Admitting Diagnosis Choledocholelithiasis Procedures Laparoscopic cholecystectomy Brief History The patient is an obese 36-year-old female who developed epigastric and right upper quadrant pain radiating to the back at 2 AM this morning which woke her up from sleep. The pain improved within began again around 9 AM after she had some breakfast. She had associated nausea but no fever or chills. The patient mentions that she has a painful mass in the lower abdomen which causes her constant pain but does worsen with menses. This began about 8 years ago. She has had some evaluation as an outpatient but no biopsy. In addition, the patient's mother was diagnosed with colon cancer at age of 41. The patient is never had a colonoscopy. Past surgical history includes 9 years ago. CBC/BMP: 04/30/17 0611 04/30/17 0611 Significant Findings Laboratory Tests Test 04/28/17 04/29/17 04/30/17 14:32 05:25 06:11 Neutrophils (%) (Auto) 80.0 % 81.2 % 73.6 % (16.0-70.0) (16.0-70.0) (16.0-70.0) Urine Color DARK-YELLOW (YELLW/STRAW) Urine Turbidity HAZY (CLEAR) Urine Protein 30 mg/dL (NEG-TRACE) Urine Occult Blood LARGE (NEG) Urine Bilirubin MOD (NEG) Urine Urobilinogen 4.0 MG/DL (LESS THAN 2.0) Urine Leukocyte Esterase MOD (NEG) Urine RBC 8 /hpf (0-3) Urine WBC 16 /hpf (0-5) Urine Mucus FEW /lpf (OCC) Estimat Glomerular Filtration 83 ML/MIN (>89) Rate Total Bilirubin 1.9 MG/DL 3.3 MG/DL 1.4 MG/DL (0.2-1.0) (0.2-1.0) (0.2-1.0) Direct Bilirubin 1.0 MG/DL (0.0-0.2) Indirect Bilirubin 0.9 MG/DL (0.0-0.8) Aspartate Amino Transf 506 U/L (15-37) 900 U/L (15-37) 291 U/L (15-37) (AST/SGOT) Alanine Aminotransferase 258 U/L (10-53) 600 U/L (10-53) 457 U/L (10-53) (ALT/SGPT) Alkaline Phosphatase 142 U/L 177 U/L 211 U/L (45-117) (45-117) (45-117) Albumin 3.3 GM/DL 3.0 GM/DL 2.8 GM/DL (3.4-5.0) (3.4-5.0) (3.4-5.0) Red Blood Count 3.99 MIL/MM3 3.91 MIL/MM3 (4.00-5.30) (4.00-5.30) Calcium Level 7.7 MG/DL 8.1 MG/DL (8.5-10.1) (8.5-10.1) Potassium Level 3.4 MEQ/L (3.5-5.1) PE at Discharge NAD Abd: soft, inc c/d/i Hospital Course LFTs increased post op. She is tolerating diet but did complain of pain. POD 1 LFTs overall improving. I will dc home today and have her get CMP drawn when she comes to see me in office. Pt Condition on Discharge: Stable Discharge Disposition: Discharge Home Discharge Instructions DIET: Follow Instructions for: As Tolerated, No Restrictions Activities you can perform: See Additionl Instruction Other Activity Instructions: Ok to shower. No heavy lifting. No driving while on narcotics. Follow up Referrals: Surgical - 2 Weeks with Tiago Childers MD New Medications: Oxycodone-Acetaminophen (Oxycodone-Acetaminophen) 10-325 mg Tab 1-2 TAB PO Q4H PRN PAIN #30 TAB Continued Medications: Nitrofurantoin Monohydrate Macrocrystals (Macrobid) 100 Mg Capsule 100 MG PO BID Infection Days 7 Ref 0 CAP Tiago Childers MD Apr 30, 2017 11:48
[2017-04-30 12:00] VITALS: BP 137/80; PULSE 92; RESP 18; TEMP 98.9; O2SAT 92
== END 2017-04-30 15:46 | disposition home or self-care (01) ==
LOC: NEPD 12:43 → INTOOBSV 20:28 → NEDA 20:28 → HPAC 21:54 → N06A 04-29 00:49
PROVIDERS: ADMIT Surgery; ATTEND Surgery
PROC: 0FT44ZZ Resection of Gallbladder, Percutaneous Endoscopic Approach (ICD-10-PCS; principal; 2017-04-28 22:08)
DX: K80.12 Calculus of gallbladder with acute and chronic cholecystitis without obstruction (principal); I10 Essential (primary) hypertension; N39.0 Urinary tract infection, site not specified; R31.9 Hematuria, unspecified; R74.0 Nonspecific elevation of levels of transaminase and lactic acid dehydrogenase [LDH]; R79.89 Other specified abnormal findings of blood chemistry
CPT/HCPCS: 00790; 47562; 74177; 74181; 76377; 76705; 80048; 80053; 80076; 81001; 83690; 84703; 85025; 87086; 88304; 94150; 96365; 96366; 96375; 96376; 99285; C9113; G0378; J0131; J1885; J2175; J2250; J2270; J2405; J2543; J2710; J3010; J7030; J7120; Q9967